=== PATIENT | male | born 1985 | race Two or more races ===

== ENCOUNTER 2017-06-13 09:39 | Emergency (ER) | payer MEDICAID ==
[~2017-06-13] VITALS: Ht 177.8 cm; Wt 78.6 kg
[2017-06-13 09:42] VITALS: BP 128/73
[2017-06-13 10:30] LABS: RAPID INFLUENZA A Negative (Negative); RAPID INFLUENZA B Negative (Negative)
== END 2017-06-13 11:43 | disposition home or self-care (01) ==
LOC: ED 11:00
DX: J45.40 Moderate persistent asthma, uncomplicated (principal); F29 Unspecified psychosis not due to a substance or known physiological condition; R44.3 Hallucinations, unspecified; J00 Acute nasopharyngitis [common cold]
CPT/HCPCS: 71020; 87400; 99285

== ENCOUNTER 2017-07-19 19:26 | Emergency (ER) | payer MEDICAID, OTHER ==
[~2017-07-19] VITALS: Ht 177.8 cm; Wt 75.0 kg
[2017-07-19 19:28] VITALS: BP 128/78
== END 2017-07-19 20:26 | disposition home or self-care (01) ==
LOC: ED 19:43
DX: J45.909 Unspecified asthma, uncomplicated (principal); Z76.0 Encounter for issue of repeat prescription; B19.20 Unspecified viral hepatitis C without hepatic coma
CPT/HCPCS: 99281

== ENCOUNTER 2017-08-16 03:31 | Emergency (ER) | payer MEDICAID, OTHER ==
[~2017-08-16] VITALS: Ht 162.6 cm; Wt 74.0 kg
[2017-08-16 03:34] VITALS: BP 146/79
[2017-08-16] MEDS ORDERED: ONDANSETRON ODT 8 MG ONE (04:25)
[2017-08-16] MEDS ORDERED: ONDANSETRON ODT 8 MG PO ONE (04:30)
[2017-08-16 04:34] LABS: ANION GAP 7 mmol/L (5-15); CALCIUM 9.1 mg/dL (8.5-10.1); CHLORIDE 107 mmol/L (98-107); CREATININE 0.74 mg/dL (0.7-1.3)
[2017-08-16 04:41] LABS: SALICYLATE LEVEL < 1.7 mg/dL (2.8-20.0)
[2017-08-16 04:42] LABS: ACETAMINOPHEN < 2 mcg/mL (10-30)
== END 2017-08-16 05:12 | disposition home or self-care (01) ==
LOC: ED 05:06
DX: F11.10 Opioid abuse, uncomplicated (principal); F15.10 Other stimulant abuse, uncomplicated; R11.2 Nausea with vomiting, unspecified; J45.909 Unspecified asthma, uncomplicated
CPT/HCPCS: 36415; 80048; 80307; 80329; 99284; Q0162; G0480

== ENCOUNTER 2017-08-17 23:03 | Emergency (ER) | payer MEDICAID ==
[~2017-08-17] VITALS: Ht 177.8 cm; Wt 72.6 kg
[2017-08-17 23:04] VITALS: BP 120/76
== END 2017-08-17 23:56 | disposition home or self-care (01) ==
LOC: ED 23:50
DX: M79.89 Other specified soft tissue disorders (principal); R21 Rash and other nonspecific skin eruption; J45.909 Unspecified asthma, uncomplicated; F15.10 Other stimulant abuse, uncomplicated; F10.10 Alcohol abuse, uncomplicated; Z88.0 Allergy status to penicillin; Z86.19 Personal history of other infectious and parasitic diseases; F17.210 Nicotine dependence, cigarettes, uncomplicated
CPT/HCPCS: 99283

== ENCOUNTER 2017-08-20 08:23 | Emergency (ER) | payer MEDICAID ==
[~2017-08-20] VITALS: Ht 177.8 cm; Wt 74.6 kg
[2017-08-20] MEDS ORDERED: CEPH-375 PO (09:03)
[2017-08-20] MEDS ORDERED: ACETAMINOPHEN 500 MG TABLET PO ONE (09:30)
[2017-08-20] MEDS ORDERED: ACETAMINOPHEN 500 MG TABLET ONE (09:59)
[2017-08-20 10:14] VITALS: BP 114/52
== END 2017-08-20 10:20 | disposition home or self-care (01) ==
LOC: ED 10:00
DX: M79.661 Pain in right lower leg (principal); J02.9 Acute pharyngitis, unspecified; J45.909 Unspecified asthma, uncomplicated
CPT/HCPCS: 87081; 87880; 99285

== ENCOUNTER 2017-09-28 09:00 | Emergency (ER) | payer MEDICAID ==
[~2017-09-28] VITALS: Ht 175.3 cm; Wt 70.4 kg
[~2017-09-28 09:00] MED LIST: CEPH-375 PO
[2017-09-28 09:32] VITALS: BP 116/78
[2017-09-28] MEDS ORDERED: LIDOCAINE-MPF 1%, 5ML ONE (09:50)
[2017-09-28] MEDS ORDERED: DIPH,PERTUSS(ACELL),TET VAC/PF 0.5 ML IM-VACC ONE ×2 (09:51→10:00)
[2017-09-28] MEDS ORDERED: LIDOCAINE-MPF 1%, 5ML INFIL ONE (10:00)
[2017-09-28 10:11] LABS: BASOPHILS # (AUTO) 0.04 x10^3/uL (0-0.1); BASOPHILS % (AUTO) 1 % (0-1); EOSINOPHILS # (AUTO) 0.22 x10^3/uL (0-0.4); EOSINOPHILS % (AUTO) 4 % (1-7); LYMPHOCYTES # (AUTO) 1.62 x10^3/uL (1-3.4); LYMPHOCYTES % (AUTO) 29 % (22-44); MD NO; MEAN CORPUSCULAR VOLUME 91.4 fL (81-97); MEAN PLATELET VOLUME 8.5 fL (7.4-10.4); MONOCYTES # (AUTO) 0.52 x10^3/uL (0.2-0.8); MONOCYTES % (AUTO) 9 % (2-9); NEUTROPHILS % (AUTO) 57 % (42-75); PLATELET COUNT 259 x10^3/uL (130-400); RED BLOOD COUNT 4.89 x10^6/uL (4.38-5.82); RED CELL DISTRIBUTION WIDTH 13.1 % (9.4-14.8)
[2017-09-28 10:20] LABS: ALBUMIN 3.1 g/dL (3.4-5.0); ANION GAP 4 mmol/L (5-15); CALCIUM 8.6 mg/dL (8.5-10.1); CHLORIDE 106 mmol/L (98-107); CREATININE 0.87 mg/dL (0.7-1.3)
== END 2017-09-28 11:08 | disposition home or self-care (01) ==
LOC: ED 10:48
DX: L02.413 Cutaneous abscess of right upper limb (principal); R19.7 Diarrhea, unspecified; J45.909 Unspecified asthma, uncomplicated
CPT/HCPCS: 10060; 36415; 80048; 82040; 85025; 90471; 90715

== ENCOUNTER 2020-12-18 23:36 | Emergency (ER) | payer SELFPAY ==
[2020-12-18] MEDS ORDERED: NEOSPORIN OINT. PKT 1 PACKET ONE (23:57)
[2020-12-19] MEDS ORDERED: DIPH,PERTUSS(ACELL),TET VAC/PF 0.5 ML IM-VACC ONE
[2020-12-19 00:10] VITALS: BP 131/71
--- NOTE | 2020-12-19 00:11 | NUR ---
PT AMBULATED BACK TO ROOM WITH A SMOOTH AND STEADY GAIT FOR EXAM, PT WOUNDS CLEANED AND DRESSED. PT PROVIDED CLEAN FRESH SOCKS AND SUPPLIES TO CARE FOR WOUNDS. PT NAD, DENIES ADDITIONAL QUESTIONS OR NEEDS. Patient given discharge instructions and they have confirmed that they understand the instructions. Patient ambulatory with steady gait. NAD, all questions answered appropriately, denies additional needs at this time. No personal belongings left in room after discharge.
== END 2020-12-19 00:31 | disposition home or self-care (01) ==
LOC: ED 23:59
DX: T69.022A Immersion foot, left foot, initial encounter (principal); T69.021A Immersion foot, right foot, initial encounter; L73.1 Pseudofolliculitis barbae; Z72.9 Problem related to lifestyle, unspecified; K61.1 Rectal abscess; J45.909 Unspecified asthma, uncomplicated; Z87.891 Personal history of nicotine dependence
CPT/HCPCS: 99283